=== PATIENT | male | born 1995 | race Caucasian/White ===

== ENCOUNTER 2018-08-25 15:45 | Emergency (ER) | payer OTHER ==
[2018-08-25 16:05] VITALS: BP 109/62; PULSE 128; BMI 32.3
[2018-08-25] MEDS ORDERED: HEMOQUE TEST 1 EACH EACH ONE (16:13)
[2018-08-25] MEDS ORDERED: FAMOTIDINE 20 MG/50 ML IVPB 20 MG/50 ML MG IVPB ONE ×2 (16:14→16:32)
[2018-08-25] MEDS ORDERED: ONDANSETRON 4 MG/2 ML VIAL IVPUSH ONE (16:16)
[2018-08-25] MEDS ORDERED: LACTATED RINGERS SOLUTION 1000 ML INFUS.BAG IV ONE (16:29)
[2018-08-25] MEDS ORDERED: ONDANSETRON 4 MG/2 ML VIAL ONE (16:32)
--- NOTE | 2018-08-25 16:39 | PDOC ---
History of Present Illness - General History Source: Patient, Care Provider - History of Present Illness Travel History: No Initial Comments: 08/25/18 16:35 Pt is a 22yo M with PMH of Autism, DM presenting from [facility] for vomiting an inability to tolerate PO since yesterday. Pt states that last night he went out with some friends and had a de la o cheeseburger. He states that after that he vomited and and a few episodes of nbnb emesis this AM after he tried eating. He endorses upper abdominal discomfort and lightheadedness. Denies diarrhea, constipation, fevers, chills, chest pain, SOB, urinary symptoms, sick contacts, cough, congestion. He does not think his friends are sick. PMD: Nilda PMH: see hpi PSH: none Allergies: nkda Social: Denies <Gissel Wood - Last Filed: 08/25/18 19:47> <Scarlett Roth - Last Filed: 08/25/18 22:06> - General Chief Complaint: Nausea/Vomiting Stated Complaint: STOMACH ACHE AND VOMITED Time Seen by Provider: 08/25/18 15:57 Past History - Past Medical History COPD: No Diabetes: Yes Other medical history: AUTISM,NASA SYNDROME, OBESITY - Suicide/Smoking/Psychosocial Hx Smoking History: Never smoked Information on smoking cessation initiated: No Hx Alcohol Use: No Drug/Substance Use Hx: No <Gissel Wood - Last Filed: 08/25/18 19:47> <Scarlett Roth - Last Filed: 08/25/18 22:06> - Past Medical History Allergies/Adverse Reactions: Allergies Allergy/AdvReac Type Severity Reaction Status Date / Time No Known Allergies Allergy Unverified 08/25/18 15:47 Home Medications: Ambulatory Orders Cholecalciferol (Vitamin D3) [Vitamin D] 2,000 unit PO DAILY 08/25/18 Clomipramine HCl [Anafranil] 25 mg PO BID 08/25/18 Fexofenadine HCl 180 mg PO HS 08/25/18 Liraglutide [Victoza -] 1.8 mg SQ DAILY@0700 08/25/18 [place] Carbonate [Eskalith -] 450 mg PO BID 08/25/18 Lurasidone HCl [Latuda] 80 mg PO DAILY 08/25/18 Metformin HCl [Metformin HCl ER] 500 mg PO DAILY 08/25/18 Multivit with Iron,Minerals [Complete Senior] 1 each PO DAILY 08/25/18 Mack-3/Dha/Epa/Fish Oil [Fish Oil Mack-3 EC 1,200 mg] 1 cap PO BID 08/25/18 *Physical Exam - Vital Signs Last Vital Signs Temp Pulse Resp BP Pulse Ox 97.8 F 128 H 20 109/62 97 08/25/18 15:47 08/25/18 15:47 08/25/18 15:47 08/25/18 15:47 08/25/18 15:47 <Gissel Wood - Last Filed: 08/25/18 19:47> - Vital Signs Last Vital Signs Temp Pulse Resp BP Pulse Ox 99.7 F H 128 H 20 109/62 97 08/25/18 19:07 08/25/18 15:47 08/25/18 15:47 08/25/18 15:47 08/25/18 15:47 <Scarlett Roth - Last Filed: 08/25/18 22:06> Moderate Sedation - Procedure Monitoring Vital Signs: Procedure Monitoring Vital Signs Temperature 97.8 F 08/25/18 15:47 Pulse Rate 128 H 08/25/18 15:47 Respiratory Rate 20 08/25/18 15:47 Blood Pressure 109/62 08/25/18 15:47 O2 Sat by Pulse Oximetry (%) 97 08/25/18 15:47 <Gissel Wood - Last Filed: 08/25/18 19:47> - Procedure Monitoring Vital Signs: Procedure Monitoring Vital Signs Temperature 99.7 F H 08/25/18 19:07 Pulse Rate 128 H 08/25/18 15:47 Respiratory Rate 20 08/25/18 15:47 Blood Pressure 109/62 08/25/18 15:47 O2 Sat by Pulse Oximetry (%) 97 08/25/18 15:47 <Scarlett Roth - Last Filed: 08/25/18 22:06> ED Treatment Course - LABORATORY CBC & Chemistry Diagram: 08/25/18 16:29 08/25/18 16:29 <Gissel Wood - Last Filed: 08/25/18 19:47> - LABORATORY CBC & Chemistry Diagram: 08/25/18 16:29 08/25/18 16:29 - ADDITIONAL ORDERS Additional order review: Laboratory Results 08/25/18 08/25/18 20:35 16:29 Sodium 132 L Potassium 4.0 Chloride 102 Carbon Dioxide 20 L Anion Gap 10 BUN 13 Creatinine 0.9 Creat Clearance w eGFR > 60 Random Glucose 180 H Calcium 9.4 Total Bilirubin 0.8 AST 67 H ALT 141 H Alkaline Phosphatase 70 Total Protein 7.8 Albumin 4.5 Lipase 118 Urine Color Yellow Urine Appearance Clear Urine pH 7.0 Ur Specific [place] 1.020 Urine Protein 2+ H Urine Glucose (UA) Negative Urine Ketones Negative Urine Blood Negative Urine Nitrite Negative Urine Bilirubin Negative Urine Urobilinogen 0.2 Ur Leukocyte Esterase Negative Urine RBC 0-2 Urine WBC 0-1 Uric Acid Crystals 1+ 08/25/18 16:29 RBC 5.35 MCV 85.9 MCHC 33.6 RDW 12.1 MPV 8.2 Neutrophils % No Result Required. Lymphocytes % No Result Required. - Medications Given in the ED: ED Medications Discontinued Medications Generic Name Dose Route Start Last Admin Trade Name Chito PRN Reason Stop Dose Admin Acetaminophen 1,000 mg 08/25/18 16:57 08/25/18 17:17 Ofirmev Injection - IVPB 08/25/18 16:58 1,000 mg ONCE ONE Administration Famotidine/Sodium Chloride 20 mg in 50 mls @ 100 mls/hr 08/25/18 16:14 16:39 Pepcid 20 Mg Premixed Ivpb - IVPB 08/25/18 16:43 100 mls/hr ONCE ONE Administration Lactated Ringer's 1,000 ml 08/25/18 16:29 08/25/18 16:35 Lactated Ringers Solution IV 08/25/18 16:30 1,000 ml NOW ONE Administration Ondansetron HCl 4 mg 08/25/18 16:16 08/25/18 16:36 Zofran Injection IVPUSH 08/25/18 16:17 4 mg ONCE ONE Administration <Scarlett Roth - Last Filed: 08/25/18 22:06> Medical Decision Making - Medical Decision Making 08/25/18 16:38 Pt is a 22yo M with PMH of DM presenting from [facility] for vomiting an inability to tolerate PO since yesterday. Pt states that last night he went out with some friends and had a de la o cheeseburger. He states that after that he vomited and and a few episodes of nbnb emesis this AM after he tried eating. He endorses upper abdominal discomfort and lightheadedness. Denies diarrhea, constipation, fevers, chills, chest pain, SOB, urinary symptoms, sick contacts, cough, congestion. He does not think his friends are sick. Vitals: tachycardia 128 PE: epigastric>RUQ tenderness. No masses. Normal bowel sounds. Soft. -rectal temp -LR, pepcid, zofran -cbc, cmp, lipase -BGM however machine not working. -Pt reports feeling better after meds. Asked for something to drink. Given apple juice. Pt was able to tolerate. rectal temp 101.7, IV tylenol ordered. -CTAP w/ iv contrast -Labs show elevated LFT (alt>AST). Lipase pending. Dispo depending on CTAP. Will need repeat Vitals. Passed PO challenge. <Gissel Wood - Last Filed: 08/25/18 19:47> *DC/Admit/Observation/Transfer <Gissel Wood - Last Filed: 08/25/18 19:47> <Scarlett Roth - Last Filed: 08/25/18 22:06> Diagnosis at time of Disposition: Gastroenteritis Vomiting Qualifiers: Vomiting type: unspecified Vomiting Intractability: non-intractable Nausea presence: with nausea Qualified Code(s): R11.2 - Nausea with vomiting, unspecified - Discharge Dispostion Disposition: HOME Condition at time of disposition: Stable - Referrals Referrals: Benito Heath MD [Staff Physician] - 3 days - Patient Instructions Printed Discharge Instructions: DI for Viral Gastroenteritis -- Adult Additional Instructions: clear liquids; advance diet cautiously Zofran ODT 4 mg up to 3 times a day as needed for persistent nausea Follow-up with Dr. Heath (skin care consultant) within the next 5 days(call office on Tuesday,08/28 to arrange appointment) Return to ER if you have persistent vomiting/fever/increased abdominal pain
[2018-08-25 16:52] LABS: HEMOGLOBIN 15.5 GM/dl (11.7-16.9); WHITE BLOOD COUNT 9.8 K/mm3 (4.0-10.8)
[2018-08-25 16:56] LABS: MCH 28.9 pg (25.7-33.7); MCHC 33.6 g/dl (32.0-35.9); MEAN CELL VOLUME 85.9 fl (80-96); MEAN PLT VOLUME 8.2 fl (7.5-11.1); PLATELET COUNT 269 K/MM3 (134-434); RBC 5.35 M/mm3 (4.00-5.60); RDW 12.1 % (11.9-15.9)
[2018-08-25] MEDS ORDERED: ACETAMINOPHEN 1000 MG/100 ML VIAL (NON FORMULARY) IVPB ONE (16:57)
--- NOTE | 2018-08-25 16:57 | PDOC ---
Attending Attestation - Resident Resident Name: Gissel Wood - ED Attending Attestation I have performed the following: I have examined & evaluated the patient, The case was reviewed & discussed with the resident, I agree w/resident's findings & plan - HPI HPI: 08/25/18 16:55 22yo M with PMH of DM and autism presenting from [facility] for nausea and vomiting an inability to tolerate PO since yesterday. Pt states that last night he went out with some friends and had a de la o cheeseburger. associated with mild upper abdominal discomfort and lightheadedness. 08/25/18 16:55 - Physicial Exam PE: 08/25/18 16:55 NAD, well appearing, conversive, PERRL, EOMI, MMM, nl conjunctiva, anicteric; neck supple. lungs clear, RRR, abdomen soft nontender. CRESOP x4, no focal neuro deficits. No peripheral edema. normal color for ethnicity, WWP. - Medical Decision Making 08/25/18 16:56 See HPI for details Vital signs reviewed, +tachycardic rectal temp >101 DDx abdominal pain: Renal colic, biliary colic, metabolic/electrolyte derangements. GERD, PUD, esophageal spasm, pancreatitis, hepatitis, colitis, gastroenteritis, hernia, appendicitis, diverticulitis, food poisoning. labs and lytes normal, reassuring, LFTs relatively normal interventions here: IVF, tylenol analgesia, zofran. pepcid. given fever/AP, CT a/p to r/o infection/inflammation. dispo: s/o to Dr Roth pending imaging and reeval, ultimate dispo. 08/25/18 16:57 08/25/18 19:29
[2018-08-25 16:59] LABS: ALBUMIN 4.5 g/dl (3.4-5.0); ALK PHOS 70 U/L (45-117); ANION GAP 10 MMOL/L (8-16); BILIRUBIN,TOTAL 0.8 mg/dl (0.2-1); BLOOD UREA NITROGEN 13 mg/dl (7-18); CALCIUM 9.4 mg/dl (8.5-10); CHLORIDE 102 mmol/L (98-107); CO2 20 mmol/L (21-32); CREATININE 0.9 mg/dl (0.55-1.3); GLUCOSE,RANDOM 180 mg/dl (74-106); SGOT/AST 67 U/L (15-37); SGPT/ALT 141 U/L (13-61); SODIUM 132 mmol/L (136-145); TOT PROT 7.8 g/dl (6.4-8.2)
[2018-08-25] MEDS ORDERED: ACETAMINOPHEN INJECTION 100 ML IVPB ONE (17:14)
[2018-08-25 19:08] VITALS: TEMP 99.7
[2018-08-25 19:17] LABS: PLATELET ESTIMATE ADEQUATE
[2018-08-25 19:58] LABS: LIPASE 118 U/L (73-393)
[2018-08-25 20:39] LABS: URINE APPEARANCE Clear; URINE BILIRUBIN Negative (NEGATIVE); URINE COLOR Yellow; URINE GLUCOSE (UA) Negative (NEGATIVE); URINE KETONE Negative (NEGATIVE); URINE LEUK ESTERASE Negative (NEGATIVE); URINE NITRITE Negative (NEGATIVE); URINE PROTEIN 2+ (NEGATIVE); URINE UROBILINOGEN 0.2 (0.2-1.0)
[2018-08-25 20:48] LABS: URINE RBC 0-2 /hpf (0-3); URINE WBC 0-1 (0-2)
[2018-08-25 20:49] LABS: URIC ACID CRYSTALS 1+ /hpf (NONE SEEN)
--- NOTE | 2018-08-25 22:07 | PDOC ---
*Physical Exam - Vital Signs Last Vital Signs Temp Pulse Resp BP Pulse Ox 99.7 F H 128 H 20 109/62 97 08/25/18 19:07 08/25/18 15:47 08/25/18 15:47 08/25/18 15:47 08/25/18 15:47 ED Treatment Course - LABORATORY CBC & Chemistry Diagram: 08/25/18 16:29 08/25/18 16:29 - ADDITIONAL ORDERS Additional order review: Laboratory Results 08/25/18 08/25/18 20:35 16:29 Sodium 132 L Potassium 4.0 Chloride 102 Carbon Dioxide 20 L Anion Gap 10 BUN 13 Creatinine 0.9 Creat Clearance w eGFR > 60 Random Glucose 180 H Calcium 9.4 Total Bilirubin 0.8 AST 67 H ALT 141 H Alkaline Phosphatase 70 Total Protein 7.8 Albumin 4.5 Lipase 118 Urine Color Yellow Urine Appearance Clear Urine pH 7.0 Ur Specific [place] 1.020 Urine Protein 2+ H Urine Glucose (UA) Negative Urine Ketones Negative Urine Blood Negative Urine Nitrite Negative Urine Bilirubin Negative Urine Urobilinogen 0.2 Ur Leukocyte Esterase Negative Urine RBC 0-2 Urine WBC 0-1 Uric Acid Crystals 1+ 08/25/18 16:29 RBC 5.35 MCV 85.9 MCHC 33.6 RDW 12.1 MPV 8.2 Neutrophils % No Result Required. Lymphocytes % No Result Required. - Medications Given in the ED: ED Medications Discontinued Medications Generic Name Dose Route Start Last Admin Trade Name Freq PRN Reason Stop Dose Admin Acetaminophen 1,000 mg 08/25/18 16:57 08/25/18 17:17 Ofirmev Injection - IVPB 08/25/18 16:58 1,000 mg ONCE ONE Administration Famotidine/Sodium Chloride 20 mg in 50 mls @ 100 mls/hr 08/25/18 16:14 16:39 Pepcid 20 Mg Premixed Ivpb - IVPB 08/25/18 16:43 100 mls/hr ONCE ONE Administration Lactated Ringer's 1,000 ml 08/25/18 16:29 08/25/18 16:35 Lactated Ringers Solution IV 08/25/18 16:30 1,000 ml NOW ONE Administration Ondansetron HCl 4 mg 08/25/18 16:16 08/25/18 16:36 Zofran Injection IVPUSH 08/25/18 16:17 4 mg ONCE ONE Administration Progress Note - Progress Note Progress Note: Care of this patient received from . abdominal/pelvic CT with contrast performed and interpreted by Dr. Evans of the radiology staff. Notable findings include marked fatty liver with multiple hyperdense lesions within the liver (possibly hemangiomas). There was also suggestion of mild wall edema of the hepatic flexure/proximal transverse colon, consistent with colitis. There is also evidence of mild lymphadenopathy of several mesenteric and retroperitoneal nodes. Patient lives in nursing home and is accompanied by health aide from the home. Results of the CT scan discussed with the patient and health aide. Referral information for follow-up with blood bank laboratory professional (Dr. Heath) will be given to the patient; follow-up appointment should be made within the next 3-5 days. Meanwhile, the patient should continue clear liquid diet and advance cautiously. He should return to the emergency room if there is recurrent vomiting or worsening abdominal pain/fever occurs. Prescription for Zofran ODT 4 mg to be used up to 3 times a day as been sent to pharmacy. *DC/Admit/Observation/Transfer Diagnosis at time of Disposition: Gastroenteritis Vomiting Qualifiers: Vomiting type: unspecified Vomiting Intractability: non-intractable Nausea presence: with nausea Qualified Code(s): R11.2 - Nausea with vomiting, unspecified - Discharge Dispostion Disposition: HOME Condition at time of disposition: Stable - Referrals Referrals: Benito Heath MD [Staff Physician] - 3 days - Patient Instructions Printed Discharge Instructions: DI for Viral Gastroenteritis -- Adult Additional Instructions: clear liquids; advance diet cautiously Zofran ODT 4 mg up to 3 times a day as needed for persistent nausea Follow-up with Dr. Heath (blood bank laboratory professional) within the next 5 days(call office on Tuesday,08/28 to arrange appointment) Return to ER if you have persistent vomiting/fever/increased abdominal pain - Post Discharge Activity
== END 2018-08-25 22:26 | disposition home or self-care (01) ==
LOC: FER 15:45
PROC: 3E033NZ Introduction of Analgesics, Hypnotics, Sedatives into Peripheral Vein, Percutaneous Approach (ICD-10-PCS; principal; 2018-08-25)
PROC: 3E033GC Introduction of Other Therapeutic Substance into Peripheral Vein, Percutaneous Approach (ICD-10-PCS; 2018-08-25)
PROC: 3E0337Z Introduction of Electrolytic and Water Balance Substance into Peripheral Vein, Percutaneous Approach (ICD-10-PCS; 2018-08-25)
DX: R11.2 Nausea with vomiting, unspecified (principal)
CPT/HCPCS: 36415; 74177-TC; 80053; 81003; 81015; 83690; 85025; 99283-25; J0131